=== PATIENT | female | born 1975 | race American Indian/Alaskan Native ===

== ENCOUNTER 2016-07-07 01:31 | Emergency (ER) | payer MEDICAID ==
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
[2016-07-07] MEDS ORDERED: TYLENOL PO ONE (02:23)
[2016-07-07 02:39] VITALS: BP 113/69
== END 2016-07-07 03:04 | disposition home or self-care (01) ==
LOC: ED 01:31
DX: S00.03XA Contusion of scalp, initial encounter (principal); S09.90XA Unspecified injury of head, initial encounter; G44.319 Acute post-traumatic headache, not intractable; M54.2 Cervicalgia; Y08.89XA Assault by other specified means, initial encounter; Y93.9 Activity, unspecified; Y99.9 Unspecified external cause status; Y92.89 Other specified places as the place of occurrence of the external cause
CPT/HCPCS: 99282